=== PATIENT | female | born 1935 | race Caucasian/White ===

== ENCOUNTER → 2018-08-07 | Day surgery (SDC) | payer MEDICARE, OTHER ==
[2018-08-01 13:54] LABS: BASOPHILS % 0.2 % (0.0-1.0); EOSINOPHILS # (AUTO) 0.1 (0.0-0.4); EOSINOPHILS % 2.6 % (0.0-6.0); HEMATOCRIT 39.6 % (34.2-44.1); HEMOGLOBIN 12.2 g/dL (12.0-16.0); LYMPHOCYTES # (AUTO) 2.1 (1.0-3.2); LYMPHOCYTES % 41.9 % (18.0-39.1); MEAN CORPUSCULAR HEMOGLOBIN 25.9 pg (28-32); MEAN CORPUSCULAR HGB CONC 30.8 g/dL (31-35); MEAN CORPUSCULAR VOLUME 84.1 fL (81-99); MONOCYTES # (AUTO) 0.4 (0.2-0.8); MONOCYTES % 7.9 % (4.4-11.3); NEUTROPHILS # (AUTO) 2.4 (2.1-6.9); NEUTROPHILS % 47.2 % (38.7-80.0); PLATELET COUNT 172 x10e3/uL (140-360); RED BLOOD COUNT 4.71 x10e6/uL (3.6-5.1); RED CELL DISTRIBUTION WIDTH 14.5 % (11.7-14.4)
[~2018-08-07] MED LIST: AMIODARONE HCL200 MG PO; ASPIR 8181 MG PO; DABIGATRAN PO; DITROPAN XL10 M1 PO; ELIQUIS PO; GLYCOPYRROLATE INJ 1MG/ 5 ML SYR ONE; HYOSCYAMINE SULFATE 0.5 MG/ML INJ ONE; LEVOTHYROXINE75 MCG PO; LIPITOR10 MG PO; LISINOPRIL-HCT1 EAC3 PO; LOSARTAN POTAS100 MG PO; METOPROLOL TART25 MG PO; PROPOFOL IV EMULSION 10 MG/ML 50 ML VIAL ONE; SUPER B-50 COM1 EACH PO; VIT D PO; Z.0.AMLODIPINE BESYL PO; Z.0.VYTORIN 10-401 E PO; ZETIA10 MG PO; [UNRECOGNIZED DRUG - REMARK]
[2018-08-07 08:29] VITALS: BP 139/64
== END | disposition home or self-care (01) ==
LOC: OR 06:14
PROVIDERS: ATTEND Internal Medicine Gastroenterology
DX: Z12.11 Encounter for screening for malignant neoplasm of colon (principal); D12.0 Benign neoplasm of cecum; D12.3 Benign neoplasm of transverse colon; K57.30 Diverticulosis of large intestine without perforation or abscess without bleeding; K58.9 Irritable bowel syndrome, unspecified; K64.8 Other hemorrhoids; K44.9 Diaphragmatic hernia without obstruction or gangrene; I44.0 Atrioventricular block, first degree; J45.909 Unspecified asthma, uncomplicated; I25.810 Atherosclerosis of coronary artery bypass graft(s) without angina pectoris; I10 Essential (primary) hypertension; I48.91 Unspecified atrial fibrillation; I25.2 Old myocardial infarction; E03.9 Hypothyroidism, unspecified; M54.9 Dorsalgia, unspecified; M54.2 Cervicalgia; Z91.041 Radiographic dye allergy status; Z01.810 Encounter for preprocedural cardiovascular examination; Z01.812 Encounter for preprocedural laboratory examination; Z79.02 Long term (current) use of antithrombotics/antiplatelets; Z79.82 Long term (current) use of aspirin; Z86.73 Personal history of transient ischemic attack (TIA), and cerebral infarction without residual deficits; Z95.1 Presence of aortocoronary bypass graft; Z95.5 Presence of coronary angioplasty implant and graft; Z80.0 Family history of malignant neoplasm of digestive organs
CPT/HCPCS: 36415; 45385; 85025; 88305; 93005; J1980; J3490; 45378; 45384

== ENCOUNTER 2025-03-28 09:00 | Outpatient (RCR) | payer MEDICARE, OTHER ==
[~2025-03-28 09:00] MED LIST changes: -GLYCOPYRROLATE INJ 1MG/ 5 ML SYR ONE; -HYOSCYAMINE SULFATE 0.5 MG/ML INJ ONE; +PAXLOVID 300-11 EACH PO; -PROPOFOL IV EMULSION 10 MG/ML 50 ML VIAL ONE
== END 2025-03-30 ==
LOC: PT 09:00
PROVIDERS: ATTEND Orthopaedic Surgery
DX: S42.332D Displaced oblique fracture of shaft of humerus, left arm, subsequent encounter for fracture with routine healing (principal)

== ENCOUNTER 2025-04-28 10:00 | Outpatient (RCR) | payer MEDICARE, OTHER | END 2025-04-29 | LOC: PT 10:00 | PROVIDERS: ATTEND Orthopaedic Surgery | DX: S42.332D Displaced oblique fracture of shaft of humerus, left arm, subsequent encounter for fracture with routine healing (principal) ==